=== PATIENT | female | born 2000 ===

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

== ENCOUNTER → 2023-11-11 | Outpatient (CLI) | payer SELFPAY ==
[2023-11-11 15:51] LABS: BASOPHILS ABSOLUTE AUTO 0.03 K/mm3 (0.00-0.23); BASOPHILS PERCENT AUTO 0 % (0-2); EOSINOPHILS ABSOLUTE AUTO 0.05 K/mm3 (0.00-0.68); EOSINOPHILS PERCENT AUTO 1 % (0-6); Hematocrit 38.5 % (33.0-51.0); Hemoglobin 12.9 g/dL (11.5-16.0); IMMATURE GRAN ABSOLUTE AUTO 0.07 K/mm3 (0.00-0.10); IMMATURE GRAN PERCENT AUTO 1 % (0-1); LYMPHOCYTES ABSOLUTE AUTO 1.61 K/mm3 (0.84-5.20); LYMPHOCYTES PERCENT AUTO 16 % (21-46); MONOCYTES ABSOLUTE AUTO 0.59 K/mm3 (0.16-1.47); MONOCYTES PERCENT AUTO 6 % (4-13); Mean Corpuscular HGB 31.2 pg (26.0-34.0); Mean Corpuscular HGB Conc 33.5 g/dL (31.5-36.5); Mean Corpuscular Volume 93 fL (80-100); Mean Platelet Volume 11.5 fL (9.1-12.4); NEUTROPHILS ABSOLUTE AUTO 7.66 K/mm3 (1.96-9.15); NEUTROPHILS PERCENT AUTO 77 % (41-73); Platelet Count 270 K/mm3 (150-400); RDW Coefficient Variation 12.6 % (11.7-14.2); RDW Standard Deviation 43.1 fL (35.1-46.3); Red Blood Cell Count 4.14 M/mm3 (3.80-5.20); White Blood Cell Count 10.01 K/mm3 (4.00-11.30)
== END | disposition home or self-care (01) ==
LOC: LAB 14:05 → LAB SHORT 14:05
PROVIDERS: Obstetrics & Gynecology
DX: Z34.02 Encounter for supervision of normal first pregnancy, second trimester (principal)
CPT/HCPCS: 82950; 85025

== ENCOUNTER 2024-02-11 19:47 | Inpatient (IN) | payer OTHER ==
[~2024-02-11] VITALS: Ht 172.7 cm; Wt 81.1 kg
[2024-02-11 20:08] VITALS: BP 120/76
[2024-02-11] MEDS ORDERED: Ondansetron HCl 2 MG / ML 2ML Vial IV PRN (20:25)
[2024-02-11] MEDS ORDERED: Oxytocin 10 Unit / ML Vial IM PRN (20:25)
[2024-02-11] MEDS ORDERED: Tranexamic Acid 100 ML IV SCH (20:25)
[2024-02-11] MEDS ORDERED: Carboprost Tromethamine 250 MCG/ML 1ML Amp IM PRN (20:25)
[2024-02-11] MEDS ORDERED: Misoprostol 200 MCG Tab BC PRN ×2 (20:25→23:55)
[2024-02-11] MEDS ORDERED: Lactated Ringer's 1,000 ML IV PRN (20:25)
[2024-02-11] MEDS ORDERED: FentaNYL 2mcg/ml-Bup 0.1% Epd 250 ML EPI PRN (20:25)
[2024-02-11] MEDS ORDERED: Methylergonovine Maleate 0.2MG / ML 1ML Amp IM PRN ×2 (20:25→23:55)
[2024-02-11] MEDS ORDERED: Lactated Ringer's 1,000 ML IV SCH ×3 (20:25→23:30)
[2024-02-11] MEDS ORDERED: FentaNYL Citrate 50 MCG/ML 2 ML Injection IV PRN (20:25)
[2024-02-11] MEDS ORDERED: Acetaminophen 500 MG Tab PO PRN (20:25)
[2024-02-11] MEDS ORDERED: OXYTOCIN/RINGER'S LACTATE 500 ML IV PRN (20:25)
[2024-02-11] MEDS ORDERED: ePHEDrine Sulfate 50 MG/ML 1ML Injection XX PRN (20:25)
[2024-02-11] MEDS ORDERED: Misoprostol 200 MCG Tab PR PRN (20:25)
[2024-02-11] MEDS ORDERED: Calcium Carbonate 500 MG Tab Chew PO SCH (20:30)
[2024-02-11 21:38] LABS: BASOPHILS ABSOLUTE AUTO 0.04 K/mm3 (0.00-0.23); BASOPHILS PERCENT AUTO 0 % (0-2); EOSINOPHILS ABSOLUTE AUTO 0.01 K/mm3 (0.00-0.68); EOSINOPHILS PERCENT AUTO 0 % (0-6); Hematocrit 39.5 % (33.0-51.0); Hemoglobin 13.9 g/dL (11.5-16.0); IMMATURE GRAN ABSOLUTE AUTO 0.16 K/mm3 (0.00-0.10); IMMATURE GRAN PERCENT AUTO 1 % (0-1); LYMPHOCYTES ABSOLUTE AUTO 2.47 K/mm3 (0.84-5.20); LYMPHOCYTES PERCENT AUTO 12 % (21-46); MONOCYTES ABSOLUTE AUTO 1.06 K/mm3 (0.16-1.47); MONOCYTES PERCENT AUTO 5 % (4-13); Mean Corpuscular HGB 30.8 pg (26.0-34.0); Mean Corpuscular HGB Conc 35.2 g/dL (31.5-36.5); Mean Corpuscular Volume 88 fL (80-100); Mean Platelet Volume 12.1 fL (9.1-12.4); NEUTROPHILS ABSOLUTE AUTO 16.77 K/mm3 (1.96-9.15); NEUTROPHILS PERCENT AUTO 82 % (41-73); Platelet Count 317 K/mm3 (150-400); RDW Coefficient Variation 12.6 % (11.7-14.2); RDW Standard Deviation 39.8 fL (35.1-46.3); Red Blood Cell Count 4.51 M/mm3 (3.80-5.20); White Blood Cell Count 20.51 K/mm3 (4.00-11.30)
[2024-02-11 23:10] VITALS: BP 131/79
[2024-02-11 23:25] VITALS: BP 120/67
[2024-02-11] MEDS ORDERED: Ketorolac Tromethamine 30mg Vial IV PRN (23:30)
[2024-02-11] MEDS ORDERED: Docusate Sodium 100 MG Cap PO PRN (23:35)
[2024-02-11] MEDS ORDERED: Witch Hazel/Glycerin PADS TOP PRN (23:35)
[2024-02-11] MEDS ORDERED: Lanolin Cream TOP PRN (23:35)
[2024-02-11] MEDS ORDERED: Benzocaine Topical Anesthetic Spray 60GM TOP PRN (23:35)
[2024-02-11] MEDS ORDERED: Acetaminophen 325 MG TABLET PO PRN (23:35)
[2024-02-11 23:40] VITALS: BP 118/70
[2024-02-11 23:55] VITALS: BP 125/71
[2024-02-11] MEDS ORDERED: LACTATED RINGERS IV PRN (23:55)
[2024-02-11] MEDS ORDERED: Ibuprofen 400 MG Tab PO PRN (23:55)
[2024-02-11] MEDS ORDERED: OXYTOCIN IV PRN (23:55)
[2024-02-12] VITALS (11 sets, daily range): BP systolic 112–145; BP diastolic 62–95
[2024-02-12] MEDS ORDERED: Prenatal Vit/FE Fumarate/FA 1 Tab PO SCH (09:00)
[2024-02-12] MEDS ORDERED: PRENATAL TABLE1 EAC2 PO (18:45)
--- NOTE | 2024-02-13 00:03 | NUR ---
DISCHARGE NOTE: MOM AND FOB ARE WALKED OUT WITH BY THIS RN. HEARD AUDIBLE CLICK OF CARSEAT. MOM DENIES AND QUESTIONS OR CONCERNS. MOM INFORMED IF SHE HAS ANY QUESTIONS OR CONCERNS TO CALL [facility] OR PROVIDER.
== END 2024-02-12 23:55 | disposition home or self-care (01) | DRG 807 ==
LOC: OBS 19:47 → BC 20:10 → OBS 20:19 → BC 20:19
PROVIDERS: ADMIT Advanced Practice Midwife
PROC: 10E0XZZ Delivery of Products of Conception, External Approach (ICD-10-PCS; principal; 2024-02-11)
PROC: 0UQGXZZ Repair Vagina, External Approach (ICD-10-PCS; 2024-02-11)
DX: O48.0 Post-term pregnancy (principal); Z37.0 Single live birth; O77.0 Labor and delivery complicated by meconium in amniotic fluid; O69.81X0 Labor and delivery complicated by cord around neck, without compression, not applicable or unspecified; O70.0 First degree perineal laceration during delivery; Z3A.40 40 weeks gestation of pregnancy
CPT/HCPCS: 36415; 59025; 85025; 86850; 86900; 86901; A9270; J1885; J2590; J3010